=== PATIENT | male | born 1980 | race Caucasian/White ===

== ENCOUNTER 2021-09-25 17:53 | Emergency (ER) | payer OTHER ==
[~2021-09-25] VITALS: Ht 180.3 cm; Wt 68.0 kg
--- NOTE | ~2021-09-25 | EMS ---
[facility] [address] [place] [address] EMS Patient Care Report Name: SERA ANDERSON Room #: DEP GEOFF Streeter#: [id number] Admission: 09/25/21 Attend Phys: Discharge: 09/25/21 Date of : 84 Report #: [id number] THIS REPORT FOR: //name// Report Transmitted: 09/26/2021 11:22 EMS Care Summary [facility] MED-ACT Incident [id number] @ 09/25/2021 17:15 Incident Location [address] [place] [address] [place] [address] Patient SERA ANDERSON Male, 40 Years 1980 Patient Address Chief Complaint Chest pain and diff breathing Disposition Transported No Lights/[place] Reason Breathing Problem Transported To [facility] Narrative Pt found laying supine next to his work van at a residence with OPFD and LFD at his side. Pt is Vietnamese speaking and his friend is helping with communication. 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 About an hour ago, he inhaled some gasoline fumes from the saw. His co-workers and he went to [employer] to get supplies and on the way back, he had a sudden onset of difficulty breathing and pain in his chest when he breathes. His friends thought he may have passed out in van. On EMS arrival, pt was AOx3 and appeared anxious. Pt reports he is still not feeling good and it hurts to breath. Pt is not using any accessory muscles or retractions. His RA spo2 is 100% with CBBS. Vitals, assessment, EKG, and 12 lead. Assisted pt to the cot and secured with straps. [place] [facility] [place]. Obtaining a good current and pmhx was difficult due to the language barrier. Placed pt in ER RM 7 on arrival at [place]. Rn at side and report given. [facility] [address] [place] [address] EMS Patient Care Report Name: SERA ANDERSON Room #: DEP Ferdinand#: [id number] Admission: 09/25/21 Attend Phys: Discharge: 09/25/21 Date of : 84 Report #: [id number] Initial Vitals @17:26P: 99,SpO2: 100, @17:46P: 75,R: 19,EtCO2: 38,SpO2: 100, @17:35P: 84,R: 23,EtCO2: 27,SpO2: 100, @17:46P: 77,R: 19,BP: 110/69,SpO2: 100, @PTAP: 97,R: 28,BP: 154/73,GCS: 15,SpO2: 97,Revised Trauma: 12, @17:35P: 82,R: 27,BP: 124/77,GCS: 15,Temp: 97.4F,SpO2: 99,Revised Trauma: 12, Impression Chest Pain / Discomfort Procedures @17:26 12-Lead ECG Response: UnchangedSucceeded @17:35 Oxygen FlowRate: 2 Device: CO2 Nasal Cannula Response: UnchangedSucceeded @17:36 Surgical Mask on Patient Response: Unchanged 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,BP: 154/73 M,PULSE: 97,RR: 28 R,SPO2: 97 Ox,ETCO2: ,BG: ,PAIN: ,GCS: 15, 17:14,Call Received 17:14,Psap Call 17:15,Dispatched 17:16,En Route 17:24,On Scene 17:25,At Patient 17:26,12-Lead ECG,Response: UnchangedSucceeded, 17:26,BP: / M,PULSE: 99,RR: R,SPO2: 100 Ox,ETCO2: ,BG: ,PAIN: ,GCS: , 17:35,Oxygen FlowRate: 2 Device: CO2 Nasal Cannula Response: UnchangedSucceeded, 17:35,BP: / M,PULSE: 84,RR: 23 R,SPO2: 100 Ox,ETCO2: 27 ,BG: ,PAIN: ,GCS: , 17:35,Depart Scene 17:35,BP: 124/77 M,PULSE: 82,RR: 27 R,SPO2: 99 Ox,ETCO2: ,BG: ,PAIN: ,GCS: 15, 17:36,Surgical Mask on Patient,Response: Unchanged 17:44,At Destination 17:46,BP: / M,PULSE: 75,RR: 19 R,SPO2: 100 Ox,ETCO2: 38 ,BG: ,PAIN: ,GCS: , 17:46,BP: 110/69 M,PULSE: 77,RR: 19 R,SPO2: 100 Ox,ETCO2: ,BG: ,PAIN: ,GCS: , 18:06,Call Closed Disclaimer v1.1 Copyright 2020 [employer] This EMS Care Summary contains data elements from the applicable legal record (which may be displayed differently). It is designed to provide pertinent information for the following purposes: continuity of care, clinical quality, and state data reporting. The complete legal record is available to ED staff [facility] [address] [place] [address] EMS Patient Care Report Name: SERA ANDERSON Room #: DEP Ferdinand#: [id number] Admission: 09/25/21 Attend Phys: Discharge: 09/25/21 Date of : 84 Report #: [id number] and administrators of the receiving hospital in [facility]'s Patient Tracker. All data is provided "as is."
--- NOTE | ~2021-09-25 | EMS ---
[facility] [address] [place] [address] EMS Patient Care Report Name: SERA ANDERSON Room #: DEP GEOFF Streeter#: [id number] Admission: 09/25/21 Attend Phys: Discharge: 09/25/21 Date of : 84 Report #: [id number] THIS REPORT FOR: //name// Report Transmitted: 09/25/2021 19:18 EMS Care Summary [facility] MED-ACT Incident [id number] @ 09/25/2021 17:15 Incident Location [address] [place] [address] [place] [address] Patient SERA ANDERSON Male, 40 Years 1980 Patient Address Chief Complaint Chest pain and diff breathing Disposition Transported No Lights/[place] Reason Breathing Problem Transported To [facility] Narrative Pt found laying supine next to his work van at a residence with OPFD and LFD at his side. Pt is Polish speaking and his friend is helping with communication. 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 About an hour ago, he inhaled some gasoline fumes from the saw. His co-workers and he went to [employer] to get supplies and on the way back, he had a sudden onset of difficulty breathing and pain in his chest when he breathes. His friends thought he may have passed out in van. On EMS arrival, pt was AOx3 and appeared anxious. Pt reports he is still not feeling good and it hurts to breath. Pt is not using any accessory muscles or retractions. His RA spo2 is 100% with CBBS. Vitals, assessment, EKG, and 12 lead. Assisted pt to the cot and secured with straps. Moved [place] [facility] and [place]. Obtaining a good current and pmhx was difficult due to the language barrier. Placed pt in ER RM 7 on arrival at [place]. Rn at side and report given. [facility] [address] [place] [address] EMS Patient Care Report Name: SERA ANDERSON [facility] [id number] Admission: 09/25/21 Attend Phys: Discharge: 09/25/21 Date of : 84 Report #: [id number] Initial Vitals @17:26P: 99,SpO2: 100, @17:46P: 75,R: 19,EtCO2: 38,SpO2: 100, @17:35P: 84,R: 23,EtCO2: 27,SpO2: 100, @17:46P: 77,R: 19,BP: 110/69,SpO2: 100, @PTAP: 97,R: 28,BP: 154/73,GCS: 15,SpO2: 97,Revised Trauma: 12, @17:35P: 82,R: 27,BP: 124/77,GCS: 15,Temp: 97.4F,SpO2: 99,Revised Trauma: 12, Impression Chest Pain / Discomfort Procedures @17:26 12-Lead ECG Response: UnchangedSucceeded @17:35 Oxygen FlowRate: 2 Device: CO2 Nasal Cannula Response: UnchangedSucceeded @17:36 Surgical Mask on Patient Response: Unchanged 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,BP: 154/73 M,PULSE: 97,RR: 28 R,SPO2: 97 Ox,ETCO2: ,BG: ,PAIN: ,GCS: 15, 17:14,Call Received 17:14,Psap Call 17:15,Dispatched 17:16,En Route 17:24,On Scene 17:25,At Patient 17:26,12-Lead ECG,Response: UnchangedSucceeded, 17:26,BP: / M,PULSE: 99,RR: R,SPO2: 100 Ox,ETCO2: ,BG: ,PAIN: ,GCS: , 17:35,Oxygen FlowRate: 2 Device: CO2 Nasal Cannula Response: UnchangedSucceeded, 17:35,BP: / M,PULSE: 84,RR: 23 R,SPO2: 100 Ox,ETCO2: 27 ,BG: ,PAIN: ,GCS: , 17:35,Depart Scene 17:35,BP: 124/77 M,PULSE: 82,RR: 27 R,SPO2: 99 Ox,ETCO2: ,BG: ,PAIN: ,GCS: 15, 17:36,Surgical Mask on Patient,Response: Unchanged 17:44,At Destination 17:46,BP: / M,PULSE: 75,RR: 19 R,SPO2: 100 Ox,ETCO2: 38 ,BG: ,PAIN: ,GCS: , 17:46,BP: 110/69 M,PULSE: 77,RR: 19 R,SPO2: 100 Ox,ETCO2: ,BG: ,PAIN: ,GCS: , 18:06,Call Closed Disclaimer v1.1 Copyright 2020 [employer] This EMS Care Summary contains data elements from the applicable legal record (which may be displayed differently). It is designed to provide pertinent information for the following purposes: continuity of care, clinical quality, and state data reporting. The complete legal record is available to ED staff [facility] [address] [place] [address] EMS Patient Care Report Name: SERA ANDERSON Room #: DEP GEOFF Streeter#: [id number] Admission: 09/25/21 Attend Phys: Discharge: 09/25/21 Date of : 84 Report #: [id number] and administrators of the receiving hospital in [facility]'s Patient Tracker. All data is provided "as is."
[2021-09-25 18:18] LABS: HEMATOCRIT 37.5 % (42.0-52.0); HEMOGLOBIN 12.8 gm/dL (14.0-18.0); MCH 29.2 pg (26.0-34.0); MCHC 34.2 g/dL (28.0-37.0); MCV 85.5 fL (80.0-100.0); RBC 4.39 mil/uL (4.50-6.00); RDW 13.5 % (10.5-14.5); WBC 5.5 thou/uL (4.0-11.0)
[2021-09-25 18:31] LABS: CALCIUM 9.1 mg/dL (8.5-10.1); CREATININE 1.1 mg/dL (0.7-1.3); POTASSIUM 3.9 mmol/L (3.5-5.1)
[2021-09-25] MEDS ORDERED: PROAIR HFA8.5 GM INH ×3 (19:07→19:24)
[2021-09-25] MEDS ORDERED: MEDROLDOSEPACK PO ×3 (19:07→19:24)
[2021-09-25 19:31] VITALS: BP 132/79
--- NOTE | 2021-09-26 07:20 | EKG ---
[address] [address] ELECTROCARDIOGRAM REPORT Name: SERA ANDERSON Room [facility] [id number] Admission: 09/25/21 Attend Phys: Discharge: 09/25/21 Date of : 84 Report #: [id number] [facility] ED Test Date: 2021-09-25 Test Time: 18:21:30 Pat Name: SERA ANDERSON Department: Room: Gender: M Live In Caregiver: ruben : 1980 Requested By: Lilian Roth Order Number: [id number] MD: Venkatesh Ramirez Measurements Intervals [place] Rate: 77 P: 72 ND: 148 QRS: 45 QRSD: 82 T: 38 QT: 363 QTc: 411 Interpretive Statements Sinus rhythm ST elev, probable normal early repol pattern No previous ECG available for comparison Electronically Signed On 09-26-2021 7:20:27 TRAVELING ACCOUNTANT by Venkatesh Ramirez [email or web address] <ELECTRONICALLY SIGNED> By: Venkatesh Ramirez MD, [facility] 09/26/21719 20 20 Venkatesh Ramirez MD, FACC /EPI
== END 2021-09-25 19:32 | disposition home or self-care (01) ==
LOC: ER 17:53
PROVIDERS: Physician Assistant
DX: R06.00 Dyspnea, unspecified (principal)